=== PATIENT | male | born 1995 | race Caucasian/White ===

== ENCOUNTER 2017-06-20 01:13 | Emergency (ER) | payer BC, OTHER ==
[2017-06-20 01:18] VITALS: TEMP 36.5; O2SAT 99
--- NOTE | 2017-06-20 01:25 | EMERGENCY ROOM VISIT NOTE ---
History Report prepared by Cadenceibe: Tiffanie Méndez Under the Supervision of: Dr. Janelle Kemp D.O. First contact with patient: 01:15 Chief Complaint: ALCOHOL OVERDOSE Stated Complaint: ALCOHOL History of Present Illness The patient is a 21 year old male who presents to the Emergency Room with complaints of an episode of a alcohol overdose occurring just prior to arrival. Per EMS, the patient was found passed out in a stairwell across from the [facility]. The patient is a [employer] student. The patient has no active medical problems. History limited secondary to intoxication. Source of History: patient History Limited By: intoxication Onset: just prior to arrival Position: other (global) Timing: other (episode) Review of Systems ROS limited secondary to intoxication. Past Medical & Surgical Unable to obtain because the patient is significantly intoxicated Family History No pertinent family history stated. Social History Smoking Status: Never Smoker Alcohol Use: occasionally Occupation Status: [employer] Current/Historical Medications Unable to Obtain Active Prescriptions or Reported Meds Allergies Coded Allergies: No Known Allergies (Unverified , 02/10/16) Physical Exam Vital Signs Date Time Temp Pulse Resp B/P (MAP) Pulse Ox O2 Delivery O2 Flow Rate FiO2 06/20/17 06:00 73 14 92/48 95 Room Air 06/20/17 05:10 87 06/20/17 05:00 93 14 102/66 95 Room Air 06/20/17 04:00 71 18 106/58 95 Room Air 06/20/17 03:00 71 18 108/48 92 Room Air 06/20/17 01:57 74 16 115/63 95 Room Air 06/20/17 01:41 101 06/20/17 01:18 99 Room Air 06/20/17 01:18 36.5 95 18 130/83 99 Room Air Physical Exam General: The patient smells of alcohol. HEENT: Head - normocephalic and atraumatic Pupils are 6 mm and reactive to light. Extraocular eye muscles are intact, and sclera are anicteric. Nose - moist nasal mucosa without discharge. Mouth - moist buccal mucosa. Oropharynx is nonerythematous and there is no tonsillar exudate or edema noted. Neck: Supple; no JVD, nuchal rigidity, cervical lymphadenopathy. Heart: Regular rate and rhythm. There is a normal S1 and S2 with no murmurs, clicks, or gallops appreciated. Lungs: Clear to auscultation bilaterally with no wheezes, rales, or rhonchi. Abdomen: Soft, completely nontender, nondistended, with good bowel sounds. There are no palpable pulsatile masses or hepatosplenomegaly. There is no guarding, rigidity, or rebound noted. Extremities: No evidence of cyanosis, clubbing, or edema. There are easily palpable peripheral pulses. Skin: warm and dry with good turgor and no rashes. Medical Decision & Procedures Laboratory Results 06/20/17 01:25 Test 06/20/17 01:25 Anion Gap 10.0 mmol/L (3-11) Estimated GFR () > 150.0 Estimated GFR (Non- 130.2 BUN/Creatinine Ratio 9.2 (10-20) Calcium Level 8.5 mg/dl (8.5-10.1) Ethyl Alcohol mg/dL 368.0 mg/dl (0-3) Laboratory results per my review. ED Course 0117: The patient was evaluated in room A11B. A complete history and physical exam was performed. The patient was placed in the prone position to avoid aspiration. He was observed on the product development chemist and pulse oximeter. Laboratory studies were drawn as above. 0202: The patient is sleeping and is hemodynamically stable. 0515: The patient is still sleeping and his vitals are stable. 0730: The patient was signed out to Dr. Pena at the change of shifts. Medical Decision The patient is a 21 year old male who presents to the Emergency Room with complaints of an episode of a alcohol overdose occurring just prior to arrival. Differential diagnosis includes: alcohol intoxication, drug overdose, hypothermia, head injury, hypoglycemia. Lab results show: alcohol 368, potassium 3.2, normal renal function, glucose 115. This is a 21-year-old male patient is brought to the emergency department after consuming too much alcohol. His blood alcohol level was significantly high. She remained hemodynamically stable while here in the emergency department. I attempted to wake the patient before I left my shift but was unsuccessful. The case will be signed out to Dr. Pena at change of shift awaiting sobriety. Blood Pressure Screening Patient's blood pressure: Normal blood pressure Impression Primary Impression: Alcohol overdose Scribe Attestation The scribe's documentation has been prepared under my direction and personally reviewed by me in its entirety. I confirm that the note above accurately reflects all work, treatment, procedures, and medical decision making performed by me. Departure Information Prescriptions Unable to Obtain Active Prescriptions or Reported Meds Referrals No Doctor, Assigned (PCP) Patient Instructions My [facility] Health Problem Qualifiers Primary Impression: Alcohol overdose Encounter type: initial encounter Injury intent: accidental or unintentional Qualified Codes: T51.91XA - Toxic effect of unspecified alcohol , accidental (unintentional), initial encounter
[2017-06-20 01:57] LABS: BLOOD UREA NITROGEN 7 mg/dl (7-18); BUN/CREATININE RATIO 9.2 (10-20); CALCIUM 8.5 mg/dl (8.5-10.1); CARBON DIOXIDE 24 mmol/L (21-32); CHLORIDE 109 mmol/L (98-107); CREATININE 0.79 mg/dl (0.60-1.40); GLUCOSE 115 mg/dl (70-99); POTASSIUM 3.2 mmol/L (3.5-5.1); SODIUM 143 mmol/L (136-145)
--- NOTE | 2017-06-20 09:49 | EMERGENCY ROOM VISIT NOTE ---
ED Visit Note First contact with patient: 07:12 21 yr old intoxicated male brought in by EMS after being found sleeping near [employer] [place], initially evaluated by Dr Kemp and signed out to me awaiting sobering up. Patient with no evidence nor history for trauma other than abrasion to right face. He is unsure when he obtained abrasion but denies head , neck, nor facial pain. He is GCS15 and does not meet criteria for imaging. Protecting airway and breathing comfortably throughout ED stay. EtOH positive. Monitored and discharged when awake, alert, oriented and denies any complaints.
[2017-06-20 10:12] VITALS: BP 122/78; PULSE 78; O2SAT 97
== END 2017-06-20 10:16 | disposition home or self-care (01) ==
LOC: EDUNIT# 01:13 → C.EDA 01:14
DX: T51.0X1A Toxic effect of ethanol, accidental (unintentional), initial encounter (principal)